=== PATIENT | female | born 1945 ===

== ENCOUNTER 2018-10-04 09:43 | Emergency (ER) | payer OTHER ==
[~2018-10-04] VITALS: Ht 167.6 cm; Wt 67.6 kg
[2018-10-04] MEDS ORDERED: DEPAKOTE ER500 MG (11:08)
[2018-10-04] MEDS ORDERED: RISPERDAL2 MG (11:08)
[2018-10-04] MEDS ORDERED: COGENTIN2 MG/2 ML (11:09)
[2018-10-04] MEDS ORDERED: MICROZIDE12.5 MG (11:10)
[2018-10-04] MEDS ORDERED: XOLEGEL45 GM TOP (12:07)
[2018-10-04] MEDS ORDERED: CORTISONE60 GM TOP (12:07)
== END 2018-10-04 13:11 | disposition home or self-care (01) ==
LOC: ER 09:43
DX: B35.6 Tinea cruris (principal)